=== PATIENT | male | born 1960 | race American Indian/Alaskan Native ===

== ENCOUNTER 2019-04-08 13:35 | Emergency (ER) | payer OTHER ==
[2019-04-08 13:41] VITALS: BP 125/72
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
[2019-04-08] MEDS ORDERED: ZOFRAN ODT PO ONE (15:05)
[2019-04-08] MEDS ORDERED: TYLENOL #3 PO ONE (15:05)
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
--- NOTE | 2019-04-08 15:17 | XRay Report ---
LUMBOSACRAL SPINE, 3 VIEWS: History: Back pain Findings: The vertebral bodies, disk spaces and posterior elements are intact. No compression deformity or malalignment. The SI joints are symmetric with mild bilateral osteoarthritic changes. Moderate degenerative disc disease and facet arthropathy are identified at L3-4, L4-5 and L5-S1. Impression: Lumbar spondylosis. No evidence for acute injury to the lumbar spine.
--- NOTE | 2019-04-08 15:17 | XRay Report ---
RIGHT SHOULDER, 3 VIEWS: HISTORY: right shoulder pain. Normal bone mineralization. No acute osseous injury or joint pathology is detected. The soft tissues are unremarkable. IMPRESSION: Right shoulder within normal limits.
--- NOTE | 2019-04-08 15:18 | XRay Report ---
CERVICAL SPINE, 3 views: History: Neck pain. Findings: The vertebral bodies, disk spaces, posterior elements and prevertebral soft tissues are intact. The dens is intact. No acute fracture or malalignment is identified. Moderate degenerative disc disease is noted at C5-6 and C6-7. Impression: Cervical spondylosis. No evidence for acute injury to the cervical spine.
== END 2019-04-08 16:00 | disposition home or self-care (01) ==
LOC: ED 13:35
DX: S16.1XXA Strain of muscle, fascia and tendon at neck level, initial encounter (principal); S39.012A Strain of muscle, fascia and tendon of lower back, initial encounter; V89.2XXA Person injured in unspecified motor-vehicle accident, traffic, initial encounter; Y93.89 Activity, other specified; Y92.488 Other paved roadways as the place of occurrence of the external cause; Y99.8 Other external cause status
CPT/HCPCS: 72040; 72100; 99283; Q0162